=== PATIENT | male | born 1990 | race American Indian/Alaskan Native ===

== ENCOUNTER 2019-11-05 23:57 | Inpatient (IN) | payer OTHER, SELFPAY ==
[2019-11-06 00:41] LABS: Basophils % (Auto) 0.5 % (0.0-1.8); Eosinophils # (Auto) 0.1 K/mm3 (0.0-0.4); Eosinophils % (Auto) 1.2 % (0.0-4.3); Hematocrit 41.8 % (35.5-45.6); Hemoglobin 14.4 gm/dl (11.8-15.2); Lymphocytes # (Auto) 1.8 K/mm3 (1.2-5.4); Lymphocytes % (Auto) 30.7 % (13.4-35.0); Mean Corpuscular HGB Conc 34 % (32-34); Mean Corpuscular Volume 91 fl (84-94); Monocytes # (Auto) 0.5 K/mm3 (0.0-0.8); Monocytes % (Auto) 7.7 % (0.0-7.3); Platelet Count 300 K/mm3 (140-440)
[2019-11-06 01:05] LABS: Alanine Aminotransferase 424 units/L (7-56); Albumin 4.7 g/dL (3.9-5); BUN/Creatinine Ratio 13; Blood Urea Nitrogen 13 mg/dL (9-20); Calcium 9.8 mg/dL (8.4-10.2); Hemolysis Index 0
--- NOTE | 2019-11-06 02:46 | Ultrasound Report ---
ULTRASOUND ABDOMEN, LIMITED (RIGHT UPPER QUADRANT) INDICATION: pain, elevated LFTs COMPARISON: None available. LIMITATIONS: None FINDINGS: Pancreas: Not fully visualized but no obvious abnormalities of the head and body are noted Liver: Normal. Gallbladder: Partly contracted. Moderate sludge is seen. Small echogenic reflectors within the sludge possibly are tiny nonshadowing calculi. No wall thickening is seen however and no fluid is seen surr ounding or within the wall the gallbladder. The technologist reported a positive Hardwick's sign when e xamining the gallbladder. Bile ducts: Extrahepatic dilatation. Common Bile Duct measures 11 mm. Free fluid: None. Additional Findings: None. IMPRESSION: 1. Moderate gallbladder sludge with possible tiny calculi but without definite acute change noted. Ho wepennie, the technologist reported tenderness strictly over the gallbladder during the examination. 2. Moderate extrahepatic biliary dilatation of unclear source Signer Name: Fabian Marcus MD Signed: 11/06/2019 2:42 AM Workstation Name: [id number]
--- NOTE | 2019-11-06 05:20 | Emergency Department Report ---
ED Abdominal Pain HPI - General Chief Complaint: Abdominal Pain Stated Complaint: STOMACH PAIN Time Seen by Provider: 11/06/19 03:57 Source: patient Mode of arrival: Ambulatory Limitations: No Limitations - History of Present Illness Initial Comments: 29-year-old -[place] male patient without significant past medical history presents with complaints of acute right upper quadrant/epigastric pain x yesterday. Patient states he has had similar pain that has been intermittent for the past 2 years that typically last about 45 minutes and resolves without treatment. He states the pain is worse now and has been constant since around 2 PM yesterday. Patient reports the pain started after eating and denies any fever/chills/sweats, vomiting, diarrhea/melena/hematochezia, known history of gallstones, abdominal surgeries, chest pain, or shortness of breath. He admits to some nausea and states his pain worsens with sitting and lying down. Severity scale (0 -10): 4 - Related Data Allergies Allergy/AdvReac Type Severity Reaction Status Date / Time No Known Allergies Allergy Unverified 11/06/19 00:19 ED Review of Systems ROS: Stated complaint: STOMACH PAIN Other details as noted in HPI Constitutional: denies: chills, diaphoresis, fever, malaise, weakness Respiratory: denies: cough, shortness of breath Cardiovascular: denies: chest pain Endocrine: denies: excessive sweating Gastrointestinal: abdominal pain, nausea. denies: vomiting, diarrhea, constipation, hematemesis, melena, hematochezia Genitourinary: denies: urgency, dysuria, frequency, hematuria Musculoskeletal: denies: back pain Skin: denies: rash, lesions Neurological: denies: headache Hematological/Lymphatic: denies: easy bleeding, swollen glands ED Past Medical Hx - Past Medical History Previous Medical History?: No - Surgical History Past Surgical History?: No - Social History Smoking Status: Former Smoker Substance Use Type: Alcohol ED Physical Exam - General Limitations: No Limitations General appearance: alert, in no apparent distress - Head Head exam: Present: atraumatic, normocephalic - Eye Eye exam: Present: normal appearance. Absent: scleral icterus - Respiratory Respiratory exam: Present: normal lung sounds bilaterally. Absent: respiratory distress - Cardiovascular Cardiovascular Exam: Present: regular rate, normal rhythm. Absent: systolic murmur, diastolic murmur, rubs, gallop - GI/Abdominal GI/Abdominal exam: Present: soft, distended (Mild), tenderness (Right upper quadrant), normal bowel sounds - Expanded GI/Abdominal Exam Expanded GI/Abdominal exam: Present: Hardwick's sign. Absent: tenderness at [place] - Extremities Exam Extremities exam: Present: normal inspection - Back Exam Back exam: Present: normal inspection - Neurological Exam Neurological exam: Present: alert, oriented X3 - Psychiatric Psychiatric exam: Present: normal affect, normal mood - Skin Skin exam: Present: warm, dry, intact, normal color. Absent: rash, cyanosis, diaphoretic, ecchymosis ED Course Vital Signs 11/06/19 11/06/19 00:14 05:00 Temperature 99.1 F 98.8 F Pulse Rate 81 81 Respiratory 20 18 Rate Blood Pressure 132/89 Blood Pressure 141/95 [Left] O2 Sat by Pulse 99 98 Oximetry ED Medical Decision Making - Lab Data Result diagrams: 11/06/19 00:25 11/06/19 00:25 Lab Results 11/06/19 11/06/19 Range/Units 00:25 00:25 WBC 5.9 (4.5-11.0) K/mm3 RBC 4.60 (3.65-5.03) M/mm3 Hgb 14.4 (11.8-15.2) gm/dl Hct 41.8 (35.5-45.6) % MCV 91 (84-94) fl MCH 31 (28-32) pg MCHC 34 (32-34) % RDW 14.0 (13.2-15.2) % Plt Count 300 (140-440) K/mm3 Lymph % (Auto) 30.7 (13.4-35.0) % [place] % (Auto) 7.7 H (0.0-7.3) % Eos % (Auto) 1.2 (0.0-4.3) % Baso % (Auto) 0.5 (0.0-1.8) % Lymph # 1.8 (1.2-5.4) K/mm3 [place] # 0.5 (0.0-0.8) K/mm3 Eos # 0.1 (0.0-0.4) K/mm3 Baso # 0.0 (0.0-0.1) K/mm3 Seg Neutrophils % 59.9 (40.0-70.0) % Seg Neutrophils # 3.5 (1.8-7.7) K/mm3 Sodium 141 (137-145) mmol/L Potassium 4.2 (3.6-5.0) mmol/L Chloride 100.7 (98-107) mmol/L Carbon Dioxide 28 (22-30) mmol/L Anion Gap 17 mmol/L BUN 13 (9-20) mg/dL Creatinine 1.0 (0.8-1.3) mg/dL Estimated GFR > 60 ml/min BUN/Creatinine Ratio 13 % Glucose 104 H (75-100) mg/dL Calcium 9.8 (8.4-10.2) mg/dL Total Bilirubin 2.10 H (0.1-1.2) mg/dL AST 478 H (5-40) units/L ALT 424 H (7-56) units/L Alkaline Phosphatase 146 H (35-129) units/L Total Protein 7.8 (6.3-8.2) g/dL Albumin 4.7 (3.9-5) g/dL Albumin/Globulin Ratio 1.5 % Lipase 75 H (13-60) units/L - Radiology Data Radiology results: report reviewed ULTRASOUND ABDOMEN, LIMITED (RIGHT UPPER QUADRANT) INDICATION: pain, elevated LFTs COMPARISON: None available. LIMITATIONS: None FINDINGS: Pancreas: Not fully visualized but no obvious abnormalities of the head and body are noted Liver: Normal. Gallbladder: Partly contracted. Moderate sludge is seen. Small echogenic reflectors within the sludge possibly are tiny nonshadowing calculi. No wall thickening is seen however and no fluid is seen surrounding or within the wall the gallbladder. The technologist reported a positive Hardwick's sign when examining the gallbladder. Bile ducts: Extrahepatic dilatation. Common Bile Duct measures 11 mm. Free fluid: None. Additional Findings: None. IMPRESSION: 1. Moderate gallbladder sludge with possible tiny calculi but without definite acute change noted. However, the technologist reported tenderness strictly over the gallbladder during the examination. 2. Moderate extrahepatic biliary dilatation of unclear source - Medical Decision Making Patient here with acute right upper quadrant pain. Positive Hardwick sign on abdominal exam with mild distention of abdomen noted. White count is normal on CBC. Lipase is mildly elevated at 75. CMP shows ALT and AST in the 400s and alk phos at 146. Right upper quadrant ultrasound shows positive Hardwick sign, however is negative for cholecystitis; common bile duct is dilated at 11 mm with source unknown. Discussed patient with Dr. Hoffman, GI and Dr. Xiao, general surgery, who recommends MRCP and admission to hospital. Patient to be admitted by Dr. Frey, hospital medicine. Vitals are normal. Patient is nontoxic-appe aring. Morphine ordered for pain. Critical care attestation.: If time is entered above; I have spent that time in minutes in the direct care of this critically ill patient, excluding procedure time. ED Disposition Clinical Impression: Common bile duct dilatation, Elevated liver enzymes, Acute abdominal pain in right upper quadrant Disposition: DC-09 OP ADMIT IP TO THIS HOSP Is pt being admited?: Yes Condition: Stable
[2019-11-06] MEDS ORDERED: MORPHINE 4 MG/1 ML INJ IV ONE (05:23)
[2019-11-06] MEDS ORDERED: ONDANSETRON 4 MG/2 ML INJ IV ONE (05:23)
[2019-11-06 06:05] LABS: Bacteria,Urine 1+ /HPF (Negative); Bilirubin,Urine SM (Negative); Blood,Urine NEG (Negative); Color,Urine Amber (Yellow); Mucus,Urine 2+ /HPF; WBC,Urine < 1.0 /HPF (0.0-6.0)
[2019-11-06 06:27] LABS: Ictotest,Urine Positive (Negative)
[2019-11-06] MEDS ORDERED: HYDROmorphone 1 MG/1 ML INJ IV PRN (07:02)
[2019-11-06] MEDS ORDERED: ONDANSETRON 4 MG/2 ML INJ IV PRN (07:03)
[2019-11-06] MEDS ORDERED: ACETAMINOPHEN 325 MG TAB PO PRN (07:04)
--- NOTE | 2019-11-06 07:12 | History and Physical Report ---
History of Present Illness Date of examination: 11/06/19 Date of admission: 11/06/19 Chief complaint: Right upper quadrant Abdominal pain History of present illness: 29 year old male presenting with right upper quadrant abdominal pain going on for about 2 years but worse in the last 2 days . there is no history of fever or chills, no history of shortness of breath, but there was history of nausea or vomiting. Past History Past Surgical History: No surgical history Social history: alcohol abuse Family history: no significant family history Medications and Allergies Allergies Allergy/AdvReac Type Severity Reaction Status Date / Time No Known Allergies Allergy Unverified 11/06/19 00:19 Active Meds: Active Medications Acetaminophen (Tylenol) 650 mg PO Q4H PRN PRN Reason: Pain, Mild (1-3) Hydromorphone HCl (Dilaudid) 0.5 mg IV Q3H PRN PRN Reason: Pain , Severe (7-10) Dextrose/Sodium Chloride (D5/0.45ns) 1,000 mls @ 125 mls/hr IV DIRECT YEIMY Ondansetron HCl (Zofran) 4 mg IV Q8H PRN PRN Reason: Nausea And Vomiting Review of Systems Constitutional: no weight loss, no weight gain, no fever, no chills, no sweats, no night sweats, no anorexia, no fatigue, no weakness, no malaise, no chronic pain Eyes: bilateral: other (No Bilateral eye symptom) Ears, nose, mouth and throat: no ear pain, no ear discharge, no decreased hearing, no nose pain, no nasal congestion, no nasal discharge, no dental pain, no dysphagia, no swelling in mouth Cardiovascular: no chest pain, no palpitations, no syncope, no lightheadedness, no shortness of breath, no high blood pressure Respiratory: no cough, no cough with sputum, no shortness of breath, no con gestion, no pain on inspiration Gastrointestinal: abdominal pain, nausea, vomiting, no diarrhea, no constipation, no change in bowel habits, no hematemesis, no coffee ground e mesis, no melena, no hematochezia, no loss of appetite, no early satiety Genitourinary Male: no dysuria, no hematuria, no flank pain, no discharge, no urinary frequency, no testicular pain Rectal: no pain, no itching Musculoskeletal: no neck stiffness, no neck pain, no shooting arm pain, no arm numbness/tingling, no low back pain, no shooting leg pain, no leg numbness/tingling, no muscle weakness, no muscle cramps, no myalgias Integumentary: no rash, no pruritis, no redness, no sores, no wounds, no jaundice, no boils, no darkening of skin Neurological: no weakness, no parathesias, no numbness, no seizures, no syncope, no ataxia, no vertigo, no headaches, no convulsions, no aphasia, no change in speech, no confusion Psychiatric: no anxiety, no insomnia, no change in appetite, no change in libido Endocrine: no cold intolerance, no heat intolerance, no polydipsia, no polyuria, no nocturia, no excessive sweating, no flushing, no weight change Hematologic/Lymphatic: no easy bruising, no easy bleeding Allergic/Immunologic: no persistent infections Exam - Constitutional Vitals: Temp Pulse Resp BP Pulse Ox 98.8 F 81 18 141/95 99 11/06/19 05:00 11/06/19 05:00 11/06/19 06:57 11/06/19 05:00 11/06/19 06:57 General appearance: Present: mild distress - EENT Eyes: Present: PERRL, EOM intact ENT: hearing intact, clear oral mucosa, dentition normal - Neck Neck: Present: supple, normal ROM - Respiratory Respiratory effort: normal - Cardiovascular Rhythm: regular Heart Sounds: Present: S1 & S2. Absent: gallop, systolic murmur, diastolic murmur - Extremities Extremities: no ischemia, No edema Peripheral Pulses: within normal limits - Abdominal General gastrointestinal: Present: soft, non-tender, non-distended. Absent: tender, distended, rigid, hepatomegaly, splenomegaly, mass Male genitourinary: Present: deferred - Rectal Rectal Exam: deferred - Integumentary Integumentary: Present: clear, warm, dry. Absent: jaundice - Musculoskeletal Musculoskeletal: strength equal bilaterally - Psychiatric Psychiatric: appropriate mood/affect HEART Score - HEART Score Age: < 45 Risk factors: No known risk factors - Critical Actions Critical Actions: 0-3 pts:0.9-1.7%risk of adverse cardiac event.Candidate for discharge Results - Labs CBC & Chem 7: 11/06/19 00:25 11/06/19 00:25 Labs: Laboratory Last Values WBC 5.9 K/mm3 (4.5-11.0) 11/06/19 00:25 RBC 4.60 M/mm3 (3.65-5.03) 11/06/19 00:25 Hgb 14.4 gm/dl (11.8-15.2) 11/06/19 00:25 Hct 41.8 % (35.5-45.6) 11/06/19 00:25 MCV 91 fl (84-94) 11/06/19 00:25 MCH 31 pg (28-32) 11/06/19 00:25 MCHC 34 % (32-34) 11/06/19 00:25 RDW 14.0 % (13.2-15.2) 11/06/19 00:25 Plt Count 300 K/mm3 (140-440) 11/06/19 00:25 Lymph % (Auto) 30.7 % (13.4-35.0) 11/06/19 00:25 [place] % (Auto) 7.7 % (0.0-7.3) H 11/06/19 00:25 Eos % (Auto) 1.2 % (0.0-4.3) 11/06/19 00:25 Baso % (Auto) 0.5 % (0.0-1.8) 11/06/19 00:25 Lymph # 1.8 K/mm3 (1.2-5.4) 11/06/19 00:25 [place] # 0.5 K/mm3 (0.0-0.8) 11/06/19 00:25 Eos # 0.1 K/mm3 (0.0-0.4) 11/06/19 00:25 Baso # 0.0 K/mm3 (0.0-0.1) 11/06/19 00:25 Seg Neutrophils % 59.9 % (40.0-70.0) 11/06/19 00:25 Seg Neutrophils # 3.5 K/mm3 (1.8-7.7) 11/06/19 00:25 Sodium 141 mmol/L (137-145) 11/06/19 00:25 Potassium 4.2 mmol/L (3.6-5.0) 11/06/19 00:25 Chloride 100.7 mmol/L (98-107) 11/06/19 00:25 Carbon Dioxide 28 mmol/L (22-30) 11/06/19 00:25 Anion Gap 17 mmol/L 11/06/19 00:25 BUN 13 mg/dL (9-20) 11/06/19 00:25 Creatinine 1.0 mg/dL (0.8-1.3) 11/06/19 00:25 Estimated GFR > 60 ml/min 11/06/19 00:25 BUN/Creatinine Ratio 13 % 11/06/19 00:25 Glucose 104 mg/dL (75-100) H 11/06/19 00:25 Calcium 9.8 mg/dL (8.4-10.2) 11/06/19 00:25 Total Bilirubin 2.10 mg/dL (0.1-1.2) H 11/06/19 00:25 AST 478 units/L (5-40) H 11/06/19 00:25 ALT 424 units/L (7-56) H 11/06/19 00:25 Alkaline Phosphatase 146 units/L (35-129) H 11/06/19 00:25 Total Protein 7.8 g/dL (6.3-8.2) 11/06/19 00:25 Albumin 4.7 g/dL (3.9-5) 11/06/19 00:25 Albumin/Globulin Ratio 1.5 % 11/06/19 00:25 Lipase 75 units/L (13-60) H 11/06/19 00:25 Urine Color [place] (Yellow) 11/06/19 05:17 Urine Turbidity Clear (Clear) 11/06/19 05:17 Urine pH 6.0 (5.0-7.0) 11/06/19 05:17 Ur Specific [place] 1.033 (1.003-1.030) H 11/06/19 05:17 Urine Protein 30 mg/dl mg/dL (Negative) 11/06/19 05:17 Urine Glucose (UA) Neg mg/dL (Negative) 11/06/19 05:17 Urine Ketones Neg mg/dL (Negative) 11/06/19 05:17 Urine Blood Neg (Negative) 11/06/19 05:17 Urine Nitrite Neg (Negative) 11/06/19 05:17 Urine Bilirubin Sm (Negative) 11/06/19 05:17 Urine Ictotest Positive (Negative) 11/06/19 05:17 Urine Urobilinogen 4.0 mg/dL (<2.0) 11/06/19 05:17 Ur Leukocyte Esterase Neg (Negative) 11/06/19 05:17 Urine WBC (Auto) < 1.0 /HPF (0.0-6.0) 11/06/19 05:17 Urine RBC (Auto) 10.0 /HPF (0.0-6.0) 11/06/19 05:17 U Epithel Cells (Auto) < 1.0 /HPF (0-13.0) 11/06/19 05:17 Urine Bacteria (Auto) 1+ /HPF (Negative) 11/06/19 05:17 Urine Mucus 2+ /HPF 11/06/19 05:17 [place]/IV: IV Catheter Type [Left Distal INT / Saline [place] Antecubital] Assessment and Plan - Patient Problems (1) Acute abdominal pain in right upper quadrant Current Visit: Yes Status: Acute Plan to address problem: 1. I.V Diludid PRN pain 2. I.V Zofran for nausea and vomiting (2) Common bile duct dilatation Current Visit: Yes Status: Acute Plan to address problem: 1. Surgical consult 2. Gastrointestinal consult 3. MRCP 4. NPO until reviwed by the G.I doctor or the Surgeon. (3) Elevated liver enzymes Current Visit: Yes Status: Acute Plan to address problem: .G.I Consult evaluation
[2019-11-06] MEDS ORDERED: LORazepam 2 MG/ML VIAL IV PRN (09:59)
--- NOTE | 2019-11-06 11:59 | Consultation ---
History of Present Illness Consult date: 11/06/19 Reason for consult: gallstones Chief complaint: Abdominal pain - History of present illness History of present illness: 29-year-old male with no past medical history presented to the emergency room with 2 days of worsening right upper quadrant abdominal pain radiating to his back. The pain is dull and started after he ate fast food. He states that since then he has had no appetite. He had one episode of emesis which consisted of digested food. No fevers or chills. He states that he has had this pain in the past with multiple episodes over the last 5 years. He was not aware that he had a gallbladder issue. The pain is now resolved. He is hungry and thirsty. Past History Past Medical History: No medical history Past Surgical History: No surgical history Social history: alcohol abuse Family history: no significant family history Medications and Allergies Allergies Allergy/AdvReac Type Severity Reaction Status Date / Time No Known Allergies Allergy Unverified 11/06/19 00:19 Active Meds: Active Medications Acetaminophen (Tylenol) 650 mg PO Q4H PRN PRN Reason: Pain, Mild (1-3) Hydromorphone HCl (Dilaudid) 0.5 mg IV Q3H PRN PRN Reason: Pain , Severe (7-10) Dextrose/Sodium Chloride (D5/0.45ns) 1,000 mls @ 125 mls/hr IV DIRECT YEIMY Lorazepam (Ativan) 2 mg IV Q4H PRN PRN Reason: Agitation Ondansetron HCl (Zofran) 4 mg IV Q8H PRN PRN Reason: Nausea And Vomiting Review of Systems All systems: negative (10 point review of systems performed and negative except for that listed in HPI) Exam Vital Signs Temp Pulse Resp BP Pulse Ox 99.1 F 81 20 132/89 99 11/06/19 00:14 11/06/19 00:14 11/06/19 00:14 11/06/19 00:14 11/06/19 00:14 Narrative exam: Gen.: Awake, alert, oriented 3. No apparent distress ENT: Trachea midline. No lymphadenopathy. No scleral icterus or conjunctival pallor CV: S1, S2 present Respiratory: No audible wheezes Abdomen: Soft, nondistended, nontender. No rebound, rigidity, guarding Extremities: No clubbing, cyanosis, edema Results - Labs 11/06/19 00:25 11/06/19 00:25 Abnormal lab results 11/06/19 11/06/19 11/06/19 Range/Units 00:25 00:25 05:17 [place] % (Auto) 7.7 H (0.0-7.3) % Glucose 104 H (75-100) mg/dL Total Bilirubin 2.10 H (0.1-1.2) mg/dL AST 478 H (5-40) units/L ALT 424 H (7-56) units/L Alkaline Phosphatase 146 H (35-129) units/L Lipase 75 H (13-60) units/L Ur Specific [place] 1.033 H (1.003-1.030) Diabetes panel 11/06/19 Range/Units 00:25 Sodium 141 (137-145) mmol/L Potassium 4.2 (3.6-5.0) mmol/L Chloride 100.7 (98-107) mmol/L Carbon Dioxide 28 (22-30) mmol/L BUN 13 (9-20) mg/dL Creatinine 1.0 (0.8-1.3) mg/dL Glucose 104 H (75-100) mg/dL Calcium 9.8 (8.4-10.2) mg/dL AST 478 H (5-40) units/L ALT 424 H (7-56) units/L Alkaline Phosphatase 146 H (35-129) units/L Total Protein 7.8 (6.3-8.2) g/dL Albumin 4.7 (3.9-5) g/dL Calcium panel 11/06/19 Range/Units 00:25 Calcium 9.8 (8.4-10.2) mg/dL Albumin 4.7 (3.9-5) g/dL Pituitary panel 11/06/19 Range/Units 00:25 Sodium 141 (137-145) mmol/L Potassium 4.2 (3.6-5.0) mmol/L Chloride 100.7 (98-107) mmol/L Carbon Dioxide 28 (22-30) mmol/L BUN 13 (9-20) mg/dL Creatinine 1.0 (0.8-1.3) mg/dL Glucose 104 H (75-100) mg/dL Calcium 9.8 (8.4-10.2) mg/dL Adrenal panel 11/06/19 Range/Units 00:25 Sodium 141 (137-145) mmol/L Potassium 4.2 (3.6-5.0) mmol/L Chloride 100.7 (98-107) mmol/L Carbon Dioxide 28 (22-30) mmol/L BUN 13 (9-20) mg/dL Creatinine 1.0 (0.8-1.3) mg/dL Glucose 104 H (75-100) mg/dL Calcium 9.8 (8.4-10.2) mg/dL Total Bilirubin 2.10 H (0.1-1.2) mg/dL AST 478 H (5-40) units/L ALT 424 H (7-56) units/L Alkaline Phosphatase 146 H (35-129) units/L Total Protein 7.8 (6.3-8.2) g/dL Albumin 4.7 (3.9-5) g/dL - Imaging US - abdomen: report reviewed, image reviewed Assessment and Plan 29 yo M with 1. dilated CBD r/o choledoco 2. cholelithiasis 3. transaminitis/hyperbilirubinemia Plan: 1. NPO, if MRCP cannot be done over weekend patient may be started on clear liquid diet 2. IVF 3. IV abx 4. MRCP pending 5. prn pain control 6. GI consulted 7. trend bilis 8. I had an extensive discussion with the patient regarding my recommendations for cholecystectomy prior to discharge. I explained all risk, benefits, alternatives to surgery and questions were answered. The patient appears anxious about the diagnosis and was reluctant to sign the consent at this time. I have left the consent with him to review and decide if he feels comfortable with proceeding. Thank you. Please call with questions.
--- NOTE | 2019-11-06 13:04 | Event Note ---
Date: 11/06/19 Patient was admitted this morning with nausea vomiting and abdominal pain, ultrasound showed cholelithiasis and moderate extrahepatic biliary dilation, evaluated by surgery and GI, Advised MRCP, Will follow the patient clinically , follow MRCP , follow GI and surgery recommendations Monitor closely and adjust management as needed Plan of care discussed with the patient in the ER waiting for room assignment
--- NOTE | 2019-11-06 15:01 | Consultation ---
History of Present Illness - Reason for Consult Consult date: 11/06/19 Abnormal LFTs Requesting physician: BINDU WEINER - History of Present Illness 29 yo BM admitted with epigastric throbbing cramping pain starting on 11/03 at ~ 2PM. Symptoms persisted, with N/V x 1, and pt came to ER. He was given meds with relief. Pt has had similar symptoms x 5 yrs, intermittent, and ~ q 3 months, usu lasting 45', with burping, but no N/V. No clear precipitants. No GI bleed, F/C/NS. No hx of liver disease. Occ EtOH. No weight loss. No hx of jaundice. Meds reviewed. Past History Past Medical History: No medical history Past Surgical History: No surgical history Social history: alcohol abuse (Denies significant abuse.). denies: smoking Family history: no significant family history Medications and Allergies Allergies Allergy/AdvReac Type Severity Reaction Status Date / Time No Known Allergies Allergy Unverified 11/06/19 00:19 Active Meds: Active Medications Acetaminophen (Tylenol) 650 mg PO Q4H PRN PRN Reason: Pain, Mild (1-3) Hydromorphone HCl (Dilaudid) 0.5 mg IV Q3H PRN PRN Reason: Pain , Severe (7-10) Dextrose/Sodium Chloride (D5/0.45ns) 1,000 mls @ 125 mls/hr IV DIRECT YEIMY Lorazepam (Ativan) 2 mg IV Q4H PRN PRN Reason: Agitation Ondansetron HCl (Zofran) 4 mg IV Q8H PRN PRN Reason: Nausea And Vomiting Review of Systems All systems: negative (as noted in HPI) Exam - Constitutional Vitals: Temp Pulse Resp BP Pulse Ox 98.8 F 88 18 142/88 98 11/06/19 05:00 11/06/19 13:04 11/06/19 13:04 11/06/19 13:04 11/06/19 13:04 General appearance: Present: no acute distress - EENT Eyes: Present: PERRL, EOM intact ENT: hearing intact - Respiratory Respiratory effort: normal Respiratory: bilateral: CTA - Cardiovascular Rhythm: regular Heart Sounds: Present: S1 & S2 - Extremities Extremities: No edema - Abdominal General gastrointestinal: Present: soft, non-tender, normal bowel sounds Results - Labs CBC & Chem 7: 11/06/19 00:25 11/06/19 00:25 Labs: Abnormal lab results 11/06/19 11/06/19 11/06/19 Range/Units 00:25 00:25 05:17 [place] % (Auto) 7.7 H (0.0-7.3) % Glucose 104 H (75-100) mg/dL Total Bilirubin 2.10 H (0.1-1.2) mg/dL AST 478 H (5-40) units/L ALT 424 H (7-56) units/L Alkaline Phosphatase 146 H (35-129) units/L Lipase 75 H (13-60) units/L Ur Specific [place] 1.033 H (1.003-1.030) - Imaging and Cardiology US - abdomen: report reviewed (CBD dil to 11mm, sludge in GB.) Assessment and Plan 1. Abnormal LFTs - with epigastric pain and dilated CBD. Suspicious for choledocholithiasis, possibly spontaneously resolved. Doubt hepatitis or other process. - agree with MRCP - will check hepatitis serologies - if LFTs decline rapidly, could consider CCY and IOC
[2019-11-06] MEDS: D5W/0.45% NACL 1,000 ML IV SCH (19:06)
[2019-11-07 01:58] LABS: Alanine Aminotransferase 687 units/L (7-56); Albumin 4.1 g/dL (3.9-5); BUN/Creatinine Ratio 14; Blood Urea Nitrogen 13 mg/dL (9-20); Hemolysis Index 12
[2019-11-07] MEDS: D5W/0.45% NACL 1,000 ML IV SCH ×3 (04:31→21:30)
--- NOTE | 2019-11-07 08:16 | Progress Note ---
Assessment and Plan Assessment and plan: --Dilated common bile duct; MRCP to rule out choledocholithiasis Rescheduled the test for tomorrow as not done on Sundays in the hospital N.p.o. status, pain medications, IV fluids --Cholelithiasis; follow MRCP tomorrow Possible cholecystectomy prior to discharge Pain medications IV fluids --Worsening transaminitis; supportive care, GI following hepatitis panel retrieved --Obesity; BMI 35.9 Patient needs weight reduction when medically stable --Abnormal urine analysis; Possible UTI, however patient does not have fever, leukocytosis Or urinary symptoms, will check urine cultures Empiric antibiotics if needed --DVT prophylaxis; SCDs/Lovenox Monitor closely and adjust management as needed Needle Loom Setter recommendations noted and appreciated History Interval history: 29-year-old obese male patient was admitted with abdominal pain work-up is consistent with dilated common bile duct, cholelithiasis and transaminitis. Patient was evaluated by GI and surgery, awaiting MRCP to rule out choledocholithiasis, surgery recommended cholecystectomy prior to discharge Patient feels slightly better MRCP is not done during Sundays Rescheduled for tomorrow Patient has no new complaints Vital signs reviewed Hospitalist Physical - Constitutional Vitals: Temp Pulse Resp BP Pulse Ox 98.4 F 76 16 117/77 96 11/07/19 04:51 11/07/19 04:51 11/07/19 04:51 11/07/19 04:51 11/07/19 04:51 General appearance: Present: no acute distress, well-nourished - EENT Eyes: Present: PERRL, EOM intact - Neck Neck: Present: supple, normal ROM - Respiratory Respiratory effort: normal Respiratory: bilateral: diminished, negative: rales, rhonchi, wheezing - Cardiovascular Rhythm: regular Heart Sounds: Present: S1 & S2 - Extremities Extremities: no ischemia, No edema - Abdominal General gastrointestinal: soft, non-tender, non-distended, normal bowel sounds - Integumentary Integumentary: Present: clear, warm - Psychiatric Psychiatric: appropriate mood/affect, cooperative - Neurologic Neurologic: CNII-XII intact, moves all extremities HEART Score - HEART Score Age: < 45 Risk factors: No known risk factors - Critical Actions Critical Actions: 0-3 pts:0.9-1.7%risk of adverse cardiac event.Candidate for discharge Results - Labs CBC & Chem 7: 11/06/19 00:25 11/07/19 01:05 Labs: Laboratory Last Values WBC 5.9 K/mm3 (4.5-11.0) 11/06/19 00:25 RBC 4.60 M/mm3 (3.65-5.03) 11/06/19 00:25 Hgb 14.4 gm/dl (11.8-15.2) 11/06/19 00:25 Hct 41.8 % (35.5-45.6) 11/06/19 00:25 MCV 91 fl (84-94) 11/06/19 00:25 MCH 31 pg (28-32) 11/06/19 00:25 MCHC 34 % (32-34) 11/06/19 00:25 RDW 14.0 % (13.2-15.2) 11/06/19 00:25 Plt Count 300 K/mm3 (140-440) 11/06/19 00:25 Lymph % (Auto) 30.7 % (13.4-35.0) 11/06/19 00:25 [place] % (Auto) 7.7 % (0.0-7.3) H 11/06/19 00:25 Eos % (Auto) 1.2 % (0.0-4.3) 11/06/19 00:25 Baso % (Auto) 0.5 % (0.0-1.8) 11/06/19 00:25 Lymph # 1.8 K/mm3 (1.2-5.4) 11/06/19 00:25 [place] # 0.5 K/mm3 (0.0-0.8) 11/06/19 00:25 Eos # 0.1 K/mm3 (0.0-0.4) 11/06/19 00:25 Baso # 0.0 K/mm3 (0.0-0.1) 11/06/19 00:25 Seg Neutrophils % 59.9 % (40.0-70.0) 11/06/19 00:25 Seg Neutrophils # 3.5 K/mm3 (1.8-7.7) 11/06/19 00:25 Sodium 139 mmol/L (137-145) 11/07/19 01:05 Potassium 3.7 mmol/L (3.6-5.0) 11/07/19 01:05 Chloride 98.9 mmol/L (98-107) 11/07/19 01:05 Carbon Dioxide 29 mmol/L (22-30) 11/07/19 01:05 Anion Gap 15 mmol/L 11/07/19 01:05 BUN 13 mg/dL (9-20) 11/07/19 01:05 Creatinine 0.9 mg/dL (0.8-1.3) 11/07/19 01:05 Estimated GFR > 60 ml/min 11/07/19 01:05 BUN/Creatinine Ratio 14 % 11/07/19 01:05 Glucose 113 mg/dL (75-100) H 11/07/19 01:05 Calcium 9.0 mg/dL (8.4-10.2) 11/07/19 01:05 Total Bilirubin 2.60 mg/dL (0.1-1.2) H 11/07/19 01:05 AST 503 units/L (5-40) H 11/07/19 01:05 ALT 687 units/L (7-56) H 11/07/19 01:05 Alkaline Phosphatase 153 units/L (35-129) H 11/07/19 01:05 Total Protein 7.6 g/dL (6.3-8.2) 11/07/19 01:05 Albumin 4.1 g/dL (3.9-5) 11/07/19 01:05 Albumin/Globulin Ratio 1.2 % 11/07/19 01:05 Lipase 75 units/L (13-60) H 11/06/19 00:25 Urine Color [place] (Yellow) 11/06/19 05:17 Urine Turbidity Clear (Clear) 11/06/19 05:17 Urine pH 6.0 (5.0-7.0) 11/06/19 05:17 Ur Specific [place] 1.033 (1.003-1.030) H 11/06/19 05:17 Urine Protein 30 mg/dl mg/dL (Negative) 11/06/19 05:17 Urine Glucose (UA) Neg mg/dL (Negative) 11/06/19 05:17 Urine Ketones Neg mg/dL (Negative) 11/06/19 05:17 Urine Blood Neg (Negative) 11/06/19 05:17 Urine Nitrite Neg (Negative) 11/06/19 05:17 Urine Bilirubin Sm (Negative) 11/06/19 05:17 Urine Ictotest Positive (Negative) 11/06/19 05:17 Urine Urobilinogen 4.0 mg/dL (<2.0) 11/06/19 05:17 Ur Leukocyte Esterase Neg (Negative) 11/06/19 05:17 Urine WBC (Auto) < 1.0 /HPF (0.0-6.0) 11/06/19 05:17 Urine RBC (Auto) 10.0 /HPF (0.0-6.0) 11/06/19 05:17 U Epithel Cells (Auto) < 1.0 /HPF (0-13.0) 11/06/19 05:17 Urine Bacteria (Auto) 1+ /HPF (Negative) 11/06/19 05:17 Urine Mucus 2+ /HPF 11/06/19 05:17 Burnett/IV: Voiding Method Toilet IV Catheter Type [Right Peripheral IV Forearm] IV Catheter Type [Left Distal INT / Saline Lock Port Antecubital] Active Medications - Current Medications Current Medications: Generic Name Dose Route Start Last Admin Trade Name Freq PRN Reason Stop Dose Admin Acetaminophen 650 mg 11/06/19 07:04 Tylenol PO Q4H PRN Pain, Mild (1-3) Hydromorphone HCl 0.5 mg 11/06/19 07:02 Dilaudid IV Q3H PRN Pain , Severe (7-10) Dextrose/Sodium Chloride 1,000 mls @ 125 mls/hr 11/06/19 08:00 11/07/19 04:31 D5/0.45ns IV 125 mls/hr DIRECT YEIMY Administration Lorazepam 2 mg 11/06/19 09:59 Ativan IV Q4H PRN Agitation Ondansetron HCl 4 mg 11/06/19 07:03 Zofran IV Q8H PRN Nausea And Vomiting
[2019-11-07] MEDS ORDERED: MORPHINE 2 MG/1 ML INJ IV PRN (08:22)
[2019-11-07] MEDS: PANTOPRAZOLE 40 MG INJ IV SCH (10:01)
--- NOTE | 2019-11-07 11:30 | Progress Note ---
Assessment and Plan 29 yo M with 1. dilated CBD r/o choledoco 2. cholelithiasis 3. transaminitis/hyperbilirubinemia Plan: 1. Reg diet, NPO p MN for MRCP 2. IVF 3. IV abx 4. MRCP pending - will not be done today - confirmed with nursing specialty food products supervisor as MRI not available on Friday. 5. prn pain control 6. GI consult noted 7. trend bilis and LFTs- trending up 8. Patient agreeable to cholecystectomy this admission. Consent obtained. Timing of surgery dependent on MRCP results and if ERCP is needed. Thank you. Please call with questions. Subjective Date of service: 11/07/19 Narrative: Pt seen and examined. No pain, n/v. Afebrile. c/o being hungry. Objective Vital Signs - 12hr 11/07/19 04:51 Temperature 98.4 F Pulse Rate 76 Respiratory 16 Rate Blood Pressure 117/77 O2 Sat by Pulse 96 Oximetry - General physical appearance Narrative Exam: Gen; AAOx3. NAD CV: s1, s2+ Resp: even and unlabored Abd: soft, NT, ND Ext: no c/c/e - Labs 11/06/19 00:25 11/07/19 01:05 Diabetes panel 11/07/19 Range/Units 01:05 Sodium 139 (137-145) mmol/L Potassium 3.7 (3.6-5.0) mmol/L Chloride 98.9 (98-107) mmol/L Carbon Dioxide 29 (22-30) mmol/L BUN 13 (9-20) mg/dL Creatinine 0.9 (0.8-1.3) mg/dL Glucose 113 H (75-100) mg/dL Calcium 9.0 (8.4-10.2) mg/dL AST 503 H (5-40) units/L ALT 687 H (7-56) units/L Alkaline Phosphatase 153 H (35-129) units/L Total Protein 7.6 (6.3-8.2) g/dL Albumin 4.1 (3.9-5) g/dL Calcium panel 11/07/19 Range/Units 01:05 Calcium 9.0 (8.4-10.2) mg/dL Albumin 4.1 (3.9-5) g/dL Pituitary panel 11/07/19 Range/Units 01:05 Sodium 139 (137-145) mmol/L Potassium 3.7 (3.6-5.0) mmol/L Chloride 98.9 (98-107) mmol/L Carbon Dioxide 29 (22-30) mmol/L BUN 13 (9-20) mg/dL Creatinine 0.9 (0.8-1.3) mg/dL Glucose 113 H (75-100) mg/dL Calcium 9.0 (8.4-10.2) mg/dL Adrenal panel 11/07/19 Range/Units 01:05 Sodium 139 (137-145) mmol/L Potassium 3.7 (3.6-5.0) mmol/L Chloride 98.9 (98-107) mmol/L Carbon Dioxide 29 (22-30) mmol/L BUN 13 (9-20) mg/dL Creatinine 0.9 (0.8-1.3) mg/dL Glucose 113 H (75-100) mg/dL Calcium 9.0 (8.4-10.2) mg/dL Total Bilirubin 2.60 H (0.1-1.2) mg/dL AST 503 H (5-40) units/L ALT 687 H (7-56) units/L Alkaline Phosphatase 153 H (35-129) units/L Total Protein 7.6 (6.3-8.2) g/dL Albumin 4.1 (3.9-5) g/dL
[2019-11-07 12:21] LABS: Hepatitis B Surface Antigen Non-Reactive (Negative); Hepatitis C Virus Antibody Non-Reactive (NonReactive)
--- NOTE | 2019-11-07 14:56 | Event Note ---
Date: 11/07/19 Increase in LFTs noted. Hepatitis serologies negative. Pt reportedly asymptomatic. Await MRCP. Monitor LFTs.
[2019-11-08] MEDS: D5W/0.45% NACL 1,000 ML IV SCH ×3 (05:45→21:31)
[2019-11-08 07:45] LABS: Alanine Aminotransferase 519 units/L (7-56); Albumin 3.6 g/dL (3.9-5); BUN/Creatinine Ratio 9; Blood Urea Nitrogen 7 mg/dL (9-20); Calcium 8.3 mg/dL (8.4-10.2); Hemolysis Index 4
--- NOTE | 2019-11-08 08:00 | Progress Note ---
Assessment and Plan Assessment and plan: --Dilated common bile duct; MRCP today to rule out choledocholithiasis N.p.o. status, pain medications, IV fluids --Cholelithiasis; follow MRCP Possible cholecystectomy prior to discharge Pain medications IV fluids --Transaminitis; trending down supportive care, GI following hepatitis panel negative, follow MRCP today --Hyperbilirubinemia; resolved --Obesity; BMI 35.9 Patient needs weight reduction when medically stable --Abnormal urine analysis; Possible UTI, however patient does not have fever, leukocytosis Or urinary symptoms, will check urine cultures Empiric antibiotics if needed --DVT prophylaxis; SCDs/Lovenox Plan of care reviewed with the patient and his nurse History Interval history: I have seen and examined the patient this morning Patient is n.p.o. status scheduled for MRCP Feels slightly better no new complaints Vital signs noted Hospitalist Physical - Constitutional Vitals: Temp Pulse Resp BP Pulse Ox 98.5 F 76 16 108/70 98 11/08/19 04:35 11/07/19 21:21 11/08/19 04:35 11/08/19 04:35 11/07/19 21:21 General appearance: Present: no acute distress, well-nourished - EENT Eyes: Present: PERRL, EOM intact - Neck Neck: Present: supple, normal ROM - Respiratory Respiratory effort: normal Respiratory: bilateral: diminished, negative: rales, rhonchi, wheezing - Cardiovascular Rhythm: regular Heart Sounds: Present: S1 & S2 - Extremities Extremities: no ischemia, No edema - Abdominal General gastrointestinal: soft, non-tender, non-distended, normal bowel sounds - Integumentary Integumentary: Present: clear, warm - Psychiatric Psychiatric: appropriate mood/affect, cooperative - Neurologic Neurologic: CNII-XII intact, moves all extremities HEART Score - HEART Score Age: < 45 Risk factors: No known risk factors - Critical Actions Critical Actions: 0-3 pts:0.9-1.7%risk of adverse cardiac event.Candidate for discharge Results - Labs CBC & Chem 7: 11/06/19 00:25 11/08/19 06:29 Labs: Laboratory Last Values WBC 5.9 K/mm3 (4.5-11.0) 11/06/19 00:25 RBC 4.60 M/mm3 (3.65-5.03) 11/06/19 00:25 Hgb 14.4 gm/dl (11.8-15.2) 11/06/19 00:25 Hct 41.8 % (35.5-45.6) 11/06/19 00:25 MCV 91 fl (84-94) 11/06/19 00:25 MCH 31 pg (28-32) 11/06/19 00:25 MCHC 34 % (32-34) 11/06/19 00:25 RDW 14.0 % (13.2-15.2) 11/06/19 00:25 Plt Count 300 K/mm3 (140-440) 11/06/19 00:25 Lymph % (Auto) 30.7 % (13.4-35.0) 11/06/19 00:25 [place] % (Auto) 7.7 % (0.0-7.3) H 11/06/19 00:25 Eos % (Auto) 1.2 % (0.0-4.3) 11/06/19 00:25 Baso % (Auto) 0.5 % (0.0-1.8) 11/06/19 00:25 Lymph # 1.8 K/mm3 (1.2-5.4) 11/06/19 00:25 [place] # 0.5 K/mm3 (0.0-0.8) 11/06/19 00:25 Eos # 0.1 K/mm3 (0.0-0.4) 11/06/19 00:25 Baso # 0.0 K/mm3 (0.0-0.1) 11/06/19 00:25 Seg Neutrophils % 59.9 % (40.0-70.0) 11/06/19 00:25 Seg Neutrophils # 3.5 K/mm3 (1.8-7.7) 11/06/19 00:25 Sodium 139 mmol/L (137-145) 11/08/19 06:29 Potassium 3.8 mmol/L (3.6-5.0) 11/08/19 06:29 Chloride 102.6 mmol/L (98-107) 11/08/19 06:29 Carbon Dioxide 25 mmol/L (22-30) 11/08/19 06:29 Anion Gap 15 mmol/L 11/08/19 06:29 BUN 7 mg/dL (9-20) L 11/08/19 06:29 Creatinine 0.8 mg/dL (0.8-1.3) 11/08/19 06:29 Estimated GFR > 60 ml/min 11/08/19 06:29 BUN/Creatinine Ratio 9 % 11/08/19 06:29 Glucose 110 mg/dL (75-100) H 11/08/19 06:29 Calcium 8.3 mg/dL (8.4-10.2) L 11/08/19 06:29 Magnesium 2.20 mg/dL (1.7-2.3) 11/08/19 06:29 Total Bilirubin 0.70 mg/dL (0.1-1.2) 11/08/19 06:29 AST 201 units/L (5-40) H 11/08/19 06:29 ALT 519 units/L (7-56) H 11/08/19 06:29 Alkaline Phosphatase 138 units/L (35-129) H 11/08/19 06:29 Total Protein 6.8 g/dL (6.3-8.2) 11/08/19 06:29 Albumin 3.6 g/dL (3.9-5) L 11/08/19 06:29 Albumin/Globulin Ratio 1.1 % 11/08/19 06:29 Lipase 35 units/L (13-60) 11/07/19 09:02 Urine Color [place] (Yellow) 11/06/19 05:17 Urine Turbidity Clear (Clear) 11/06/19 05:17 Urine pH 6.0 (5.0-7.0) 11/06/19 05:17 Ur Specific [place] 1.033 (1.003-1.030) H 11/06/19 05:17 Urine Protein 30 mg/dl mg/dL (Negative) 11/06/19 05:17 Urine Glucose (UA) Neg mg/dL (Negative) 11/06/19 05:17 Urine Ketones Neg mg/dL (Negative) 11/06/19 05:17 Urine Blood Neg (Negative) 11/06/19 05:17 Urine Nitrite Neg (Negative) 11/06/19 05:17 Urine Bilirubin Sm (Negative) 11/06/19 05:17 Urine Ictotest Positive (Negative) 11/06/19 05:17 Urine Urobilinogen 4.0 mg/dL (<2.0) 11/06/19 05:17 Ur Leukocyte Esterase Neg (Negative) 11/06/19 05:17 Urine WBC (Auto) < 1.0 /HPF (0.0-6.0) 11/06/19 05:17 Urine RBC (Auto) 10.0 /HPF (0.0-6.0) 11/06/19 05:17 U Epithel Cells (Auto) < 1.0 /HPF (0-13.0) 11/06/19 05:17 Urine Bacteria (Auto) 1+ /HPF (Negative) 11/06/19 05:17 Urine Mucus 2+ /HPF 11/06/19 05:17 Hepatitis A IgM Ab Non-reactive (NonReactive) 11/07/19 09:02 Hep Bs Antigen Non-reactive (Negative) 11/07/19 09:02 Hep B Core IgM Ab Non-reactive (NonReactive) 11/07/19 09:02 Hepatitis C Antibody Non-reactive (NonReactive) 11/07/19 09:02 Burnett/IV: Voiding Method Toilet IV Catheter Type [Right Peripheral IV Forearm] IV Catheter Type [Left Distal INT / Saline Lock Port Antecubital] Active Medications - Current Medications Current Medications: Generic Name Dose Route Start Last Admin Trade Name Freq PRN Reason Stop Dose Admin Acetaminophen 650 mg 11/06/19 07:04 Tylenol PO Q4H PRN Pain, Mild (1-3) Hydromorphone HCl 0.5 mg 11/06/19 07:02 Dilaudid IV Q3H PRN Pain , Severe (7-10) Dextrose/Sodium Chloride 1,000 mls @ 125 mls/hr 11/06/19 08:00 11/08/19 05:45 D5/0.45ns IV 125 mls/hr DIRECT YEIMY Administration Lorazepam 2 mg 11/06/19 09:59 Ativan IV Q4H PRN Agitation Morphine Sulfate 2 mg 11/07/19 08:22 Morphine IV Q4H PRN Pain, Moderate (4-6) Ondansetron HCl 4 mg 11/06/19 07:03 Zofran IV Q8H PRN Nausea And Vomiting Pantoprazole Sodium 40 mg 11/07/19 10:00 11/07/19 10:01 Protonix IV 40 mg QDAY YEIMY Administration
[2019-11-08] MEDS: PANTOPRAZOLE 40 MG INJ IV SCH (09:15)
--- NOTE | 2019-11-08 10:20 | Anesthesia Consultation ---
Anesthesia Consult and Med Hx Date of service: 11/08/19 - Airway Anesthetic Teeth Evaluation: Good ROM Head & Neck: Adequate Mental/Hyoid Distance: Adequate Mallampati Class: Class II Intubation Access Assessment: Probably Good - Pre-Operative Health Status ASA Pre-Surgery Classification: ASA2 Proposed Anesthetic Plan: General - Pulmonary Hx Smoking: No Hx Asthma: No Hx Respiratory Symptoms: No SOB: No COPD: No Home Oxygen Therapy: No Hx Pneumonia: No Hx Sleep Apnea: Yes - Cardiovascular System Hx Hypertension: No Hx Coronary Artery Disease: No Hx Heart Attack/AMI: No Hx Angina: No Hx Percutaneous Transluminal Coronary Angioplasty (PTCA): No Hx Cardia Arrhythmia: No Hx Pacemaker: No Hx Internal Defibrillator: No Hx Valvular Heart Disease: No Hx Heart Murmur: No Hx Peripheral Vascular Disease: No - Central Nervous System Hx Neuromuscular Disorder: No Hx Seizures: No CVA: No Hx Back Pain: No Hx Psychiatric Problems: No - Gastrointestinal Hx Ulcer: No Hx Gastroesophageal Reflux Disease: No - Endocrine Hx Renal Disease: No Hx End Stage Renal Disease: No Hx Cirrhosis: No Hx Liver Disease: No Hx Insulin Dependent Diabetes: No Hx Non-Insulin Dependent Diabetes: No Hx Thyroid Disease: No Hx Hypothyroidism: No Hx Hyperthyroidism: No - Hematic Hx Anemia: No Hx Sickle Cell Disease: No - Other Systems Hx Alcohol Use: Yes (occ.) Hx Substance Use: No Hx Cancer: No Hx Obesity: Yes
--- NOTE | 2019-11-08 10:24 | Anesthesia Day of Surgery ---
Anesthesia Day of Surgery - Day of Surgery Patient Examined: Yes Patient H&P Reviewed: Yes Patient is NPO: Yes
--- NOTE | 2019-11-08 11:00 | Magnetic Resonance Report ---
MR abdomen MRCP INDICATION / CLINICAL INFORMATION: Dilated bile duct. Abnormal LFTs.. TECHNIQUE: Multiplanar, multisequence MR images were obtained. COMPARISON: Abdominal ultrasound 11/06/2019 FINDINGS: The gallbladder contains numerous small stones and sludge. No wall thickening or adjacent inflammatio n. The bile duct is dilated measuring 8.5 mm. Multiple small stones/sludge are layering dependently. No impacted stone is identified. The remaining parenchymal organs are unremarkable. Negative for abdominal mass, fluid or inflammation . The pancreatic duct is not dilated. IMPRESSION: 1. Stones/sludge within the gallbladder and common bile duct. 2. Mild dilatation of the common bile duct without visualized impacted stone. Signer Name: Pillo Chapa MD Signed: 11/08/2019 10:56 AM Workstation Name: [id number]
--- NOTE | 2019-11-08 11:00 | Event Note ---
Date: 11/08/19 Patient chart reviewed. LFTs and bilirubin is trending down. MRCP reviewed with Dr. Davis and shows dilatation of the common bile duct to 1 cm, multiple small stones in the distal one third of the common bile duct with a possible distal CBD stricture. Discussed with Dr. Hoffman. COVID test ordered for perop. Pt to be scheduled for ERCP. Pt tentatively added to OR schedule for tomorrow 11/09/19 for cholecystectomy. Consent already on chart.
--- NOTE | 2019-11-08 14:41 | Progress Note ---
Assessment and Plan 1. Abnormal LFTs - MRCP shows stones in CBD. - ERCP tomorrow - preop COVID pending, given aerosolization with upper endoscopic procedures. Subjective Date of service: 11/08/19 Interval history: Pt sleepy, no complaints. No abd pain, N/V, F/C/NS. Objective - Constitutional Vitals: Vital Signs - 12hr 11/08/19 11/08/19 04:35 12:12 Temperature 98.5 F 98.6 F Pulse Rate 79 Respiratory 16 16 Rate Blood Pressure 108/70 116/71 O2 Sat by Pulse 100 Oximetry General appearance: Present: no acute distress - EENT Eyes: PERRL, EOM intact ENT: hearing intact - Gastrointestinal General gastrointestinal: Present: soft, non-tender - Labs CBC & Chem 7: 11/06/19 00:25 11/08/19 06:29 Labs: Abnormal lab results 11/08/19 Range/Units 06:29 BUN 7 L (9-20) mg/dL Glucose 110 H (75-100) mg/dL Calcium 8.3 L (8.4-10.2) mg/dL AST 201 H (5-40) units/L ALT 519 H (7-56) units/L Alkaline Phosphatase 138 H (35-129) units/L Albumin 3.6 L (3.9-5) g/dL Medications & Allergies - Medications Allergies/Adverse Reactions: Allergies No Known Allergies Allergy (Unverified 11/06/19 00:19) Home Medications: Home Medications Medication Instructions Recorded Confirmed Last Taken Type No Known Home Medications [No 11/06/19 11/06/19 Unknown History Reported Home Medications] Active Medications: Generic Name Dose Route Start Last Admin Trade Name Freq PRN Reason Stop Dose Admin Acetaminophen 650 mg 11/06/19 07:04 Tylenol PO Q4H PRN Pain, Mild (1-3) Hydromorphone HCl 0.5 mg 11/06/19 07:02 Dilaudid IV Q3H PRN Pain , Severe (7-10) Dextrose/Sodium Chloride 1,000 mls @ 125 mls/hr 11/06/19 08:00 11/08/19 05:45 D5/0.45ns IV 125 mls/hr DIRECT YEIMY Administration Lorazepam 2 mg 11/06/19 09:59 11/08/19 09:15 Ativan IV 2 mg Q4H PRN Administration Agitation Morphine Sulfate 2 mg 11/07/19 08:22 Morphine IV Q4H PRN Pain, Moderate (4-6) Ondansetron HCl 4 mg 11/06/19 07:03 Zofran IV Q8H PRN Nausea And Vomiting Pantoprazole Sodium 40 mg 11/07/19 10:00 11/08/19 09:15 Protonix IV 40 mg QDAY YEIMY Administration HEART Score - HEART Score Age: < 45 Risk factors: No known risk factors - Critical Actions Critical Actions: 0-3 pts:0.9-1.7%risk of adverse cardiac event.Candidate for discharge
--- NOTE | 2019-11-08 19:01 | Event Note ---
Date: 11/08/19 MRCP report, GI and surgical recommendations noted ERCP tomorrow morning Followed by possible cholecystectomy COVID-19 test is negative
[2019-11-09] MEDS: D5W/0.45% NACL 1,000 ML IV SCH (06:52)
[2019-11-09] MEDS ORDERED: SODIUM CHLORIDE 0.9% 100 ML ONE (08:06)
[2019-11-09] MEDS ORDERED: WATER FOR IRRIG STERILE 1,000 ML BOTTLE ONE (08:09)
[2019-11-09] MEDS ORDERED: WATER FOR IRRIG STERILE 250 ML BOTTLE IR ONE (08:09)
[2019-11-09] MEDS ORDERED: SIMETHICONE 40 MG/0.6 ML ORAL DROP 30ML PO ONE (08:12)
--- NOTE | 2019-11-09 08:42 | Progress Note ---
Assessment and Plan Assessment and plan: Scheduled for ERCP followed by possible cholecystectomy Patient n.p.o. status, no new complaints --Dilated common bile duct; MRCP: dilatation of the common bile duct to 1 cm, multiple small stones in the distal one third of the common bile duct with a possible distal CBD stricture. N.p.o. status, pain medications, IV fluids --Cholelithiasis; s/p MRCP, for ERCP and cholecystectomy today --Transaminitis; trending down supportive care, GI following hepatitis panel negative, follow MRCP today --Hyperbilirubinemia; resolved --Obesity; BMI 35.9 Patient needs weight reduction when medically stable --Abnormal urine analysis; Possible UTI, however patient does not have fever, leukocytosis Or urinary symptoms, will check urine cultures Empiric antibiotics if needed --DVT prophylaxis; SCDs/Lovenox Plan of care reviewed with the patient and his nurse History Interval history: I have seen and examined the patient in his room this morning Patient is n.p.o. status, scheduled for ERCP followed by cholecystectomy No new complaints, slightly anxious Vital signs noted Hospitalist Physical - Constitutional Vitals: Temp Pulse Resp BP Pulse Ox 98.0 F 58 L 18 117/70 98 11/09/19 05:18 11/09/19 07:55 11/09/19 08:36 11/09/19 07:59 11/09/19 05:18 General appearance: Present: no acute distress, well-nourished - EENT Eyes: Present: PERRL, EOM intact - Neck Neck: Present: supple, normal ROM - Respiratory Respiratory effort: normal Respiratory: bilateral: diminished, negative: rales, rhonchi, wheezing - Cardiovascular Rhythm: regular Heart Sounds: Present: S1 & S2 - Extremities Extremities: no ischemia, No edema - Abdominal General gastrointestinal: soft, non-tender, non-distended, normal bowel sounds - Integumentary Integumentary: Present: clear, warm - Psychiatric Psychiatric: appropriate mood/affect, cooperative - Neurologic Neurologic: moves all extremities HEART Score - HEART Score Age: < 45 Risk factors: No known risk factors - Critical Actions Critical Actions: 0-3 pts:0.9-1.7%risk of adverse cardiac event.Candidate for discharge Results - Labs CBC & Chem 7: 11/06/19 00:25 11/08/19 06:29 Labs: Laboratory Last Values WBC 5.9 K/mm3 (4.5-11.0) 11/06/19 00:25 RBC 4.60 M/mm3 (3.65-5.03) 11/06/19 00:25 Hgb 14.4 gm/dl (11.8-15.2) 11/06/19 00:25 Hct 41.8 % (35.5-45.6) 11/06/19 00:25 MCV 91 fl (84-94) 11/06/19 00:25 MCH 31 pg (28-32) 11/06/19 00:25 MCHC 34 % (32-34) 11/06/19 00:25 RDW 14.0 % (13.2-15.2) 11/06/19 00:25 Plt Count 300 K/mm3 (140-440) 11/06/19 00:25 Lymph % (Auto) 30.7 % (13.4-35.0) 11/06/19 00:25 [place] % (Auto) 7.7 % (0.0-7.3) H 11/06/19 00:25 Eos % (Auto) 1.2 % (0.0-4.3) 11/06/19 00:25 Baso % (Auto) 0.5 % (0.0-1.8) 11/06/19 00:25 Lymph # 1.8 K/mm3 (1.2-5.4) 11/06/19 00:25 [place] # 0.5 K/mm3 (0.0-0.8) 11/06/19 00:25 Eos # 0.1 K/mm3 (0.0-0.4) 11/06/19 00:25 Baso # 0.0 K/mm3 (0.0-0.1) 11/06/19 00:25 Seg Neutrophils % 59.9 % (40.0-70.0) 11/06/19 00:25 Seg Neutrophils # 3.5 K/mm3 (1.8-7.7) 11/06/19 00:25 Sodium 139 mmol/L (137-145) 11/08/19 06:29 Potassium 3.8 mmol/L (3.6-5.0) 11/08/19 06:29 Chloride 102.6 mmol/L (98-107) 11/08/19 06:29 Carbon Dioxide 25 mmol/L (22-30) 11/08/19 06:29 Anion Gap 15 mmol/L 11/08/19 06:29 BUN 7 mg/dL (9-20) L 11/08/19 06:29 Creatinine 0.8 mg/dL (0.8-1.3) 11/08/19 06:29 Estimated GFR > 60 ml/min 11/08/19 06:29 BUN/Creatinine Ratio 9 % 11/08/19 06:29 Glucose 110 mg/dL (75-100) H 11/08/19 06:29 Calcium 8.3 mg/dL (8.4-10.2) L 11/08/19 06:29 Magnesium 2.20 mg/dL (1.7-2.3) 11/08/19 06:29 Total Bilirubin 0.70 mg/dL (0.1-1.2) 11/08/19 06:29 AST 201 units/L (5-40) H 11/08/19 06:29 ALT 519 units/L (7-56) H 11/08/19 06:29 Alkaline Phosphatase 138 units/L (35-129) H 11/08/19 06:29 Total Protein 6.8 g/dL (6.3-8.2) 11/08/19 06:29 Albumin 3.6 g/dL (3.9-5) L 11/08/19 06:29 Albumin/Globulin Ratio 1.1 % 11/08/19 06:29 Lipase 35 units/L (13-60) 11/07/19 09:02 Urine Color [place] (Yellow) 11/06/19 05:17 Urine Turbidity Clear (Clear) 11/06/19 05:17 Urine pH 6.0 (5.0-7.0) 11/06/19 05:17 Ur Specific [place] 1.033 (1.003-1.030) H 11/06/19 05:17 Urine Protein 30 mg/dl mg/dL (Negative) 11/06/19 05:17 Urine Glucose (UA) Neg mg/dL (Negative) 11/06/19 05:17 Urine Ketones Neg mg/dL (Negative) 11/06/19 05:17 Urine Blood Neg (Negative) 11/06/19 05:17 Urine Nitrite Neg (Negative) 11/06/19 05:17 Urine Bilirubin Sm (Negative) 11/06/19 05:17 Urine Ictotest Positive (Negative) 11/06/19 05:17 Urine Urobilinogen 4.0 mg/dL (<2.0) 11/06/19 05:17 Ur Leukocyte Esterase Neg (Negative) 11/06/19 05:17 Urine WBC (Auto) < 1.0 /HPF (0.0-6.0) 11/06/19 05:17 Urine RBC (Auto) 10.0 /HPF (0.0-6.0) 11/06/19 05:17 U Epithel Cells (Auto) < 1.0 /HPF (0-13.0) 11/06/19 05:17 Urine Bacteria (Auto) 1+ /HPF (Negative) 11/06/19 05:17 Urine Mucus 2+ /HPF 11/06/19 05:17 Coronavirus (PCR) Negative (Negative) 11/08/19 Unknown Hepatitis A IgM Ab Non-reactive (NonReactive) 11/07/19 09:02 Hep Bs Antigen Non-reactive (Negative) 11/07/19 09:02 Hep B Core IgM Ab Non-reactive (NonReactive) 11/07/19 09:02 Hepatitis C Antibody Non-reactive (NonReactive) 11/07/19 09:02 Microbiology: Microbiology 11/07/19 Unknown Urine,Clean Catch Urine Culture - Final Burnett/IV: Voiding Method Toilet IV Catheter Type [Right Peripheral IV Forearm] IV Catheter Type [Left Distal INT / Saline Lock Port Antecubital] Active Medications - Current Medications Current Medications: Generic Name Dose Route Start Last Admin Trade Name Freq PRN Reason Stop Dose Admin Acetaminophen 650 mg 11/06/19 07:04 Tylenol PO Q4H PRN Pain, Mild (1-3) Hydromorphone HCl 0.5 mg 11/06/19 07:02 Dilaudid IV Q3H PRN Pain , Severe (7-10) Dextrose/Sodium Chloride 1,000 mls @ 125 mls/hr 11/06/19 08:00 11/09/19 06:52 D5/0.45ns IV 125 mls/hr DIRECT YEIMY Administration Lorazepam 2 mg 11/06/19 09:59 11/08/19 09:15 Ativan IV 2 mg Q4H PRN Administration Agitation Morphine Sulfate 2 mg 11/07/19 08:22 Morphine IV Q4H PRN Pain, Moderate (4-6) Ondansetron HCl 4 mg 11/06/19 07:03 Zofran IV Q8H PRN Nausea And Vomiting Pantoprazole Sodium 40 mg 11/07/19 10:00 11/08/19 09:15 Protonix IV 40 mg QDAY YEIMY Administration
[2019-11-09] MEDS ORDERED: SODIUM CHLORIDE 0.9% 1000 ML 1,000 ML ONE (08:56)
[2019-11-09] MEDS ORDERED: GLUCAGON (HUMAN RECOMBINANT) 1 MG/ML INJ ONE (09:23)
--- NOTE | 2019-11-09 09:23 | Anesthesia Consultation ---
Anesthesia Consult and Med Hx Date of service: 11/09/19 - Airway Anesthetic Teeth Evaluation: Good ROM Head & Neck: Adequate Mental/Hyoid Distance: Adequate Mallampati Class: Class II Intubation Access Assessment: Probably Good - Pre-Operative Health Status ASA Pre-Surgery Classification: ASA2 Proposed Anesthetic Plan: MAC - Pulmonary Hx Smoking: Yes (quit 1 yr ago) Hx Asthma: No Hx Respiratory Symptoms: No SOB: No COPD: No Home Oxygen Therapy: No Hx Pneumonia: No Hx Sleep Apnea: Yes - Cardiovascular System Hx Hypertension: No Hx Coronary Artery Disease: No Hx Heart Attack/AMI: No Hx Angina: No Hx Percutaneous Transluminal Coronary Angioplasty (PTCA): No Hx Cardia Arrhythmia: No Hx Pacemaker: No Hx Internal Defibrillator: No Hx Valvular Heart Disease: No Hx Heart Murmur: No Hx Peripheral Vascular Disease: No - Central Nervous System Hx Neuromuscular Disorder: No Hx Seizures: No CVA: No Hx Back Pain: No Hx Psychiatric Problems: No - Gastrointestinal Hx Ulcer: No Hx Gastroesophageal Reflux Disease: No - Endocrine Hx Renal Disease: No Hx End Stage Renal Disease: No Hx Cirrhosis: No Hx Liver Disease: No Hx Insulin Dependent Diabetes: No Hx Non-Insulin Dependent Diabetes: No Hx Thyroid Disease: No Hx Hypothyroidism: No Hx Hyperthyroidism: No - Hematic Hx Anemia: No Hx Sickle Cell Disease: No - Other Systems Hx Alcohol Use: Yes (occ.) Hx Substance Use: No Hx Cancer: No Hx Obesity: Yes
--- NOTE | 2019-11-09 09:24 | Anesthesia Day of Surgery ---
Anesthesia Day of Surgery - Day of Surgery Patient Examined: Yes Patient H&P Reviewed: Yes Patient is NPO: Yes
[2019-11-09] MEDS ORDERED: ePHEDrine SULFATE 50 MG/1 ML INJ ONE (09:55)
[2019-11-09] MEDS ORDERED: MIDAZOLAM 2 MG/2 ML INJ ONE (09:56)
[2019-11-09] MEDS ORDERED: SUCCINYLCHOLINE CHLORIDE 200 MG/10 ML INJ MDV ONE ×2 (09:57→15:18)
[2019-11-09] MEDS ORDERED: propofoL 200 MG/20 ML VIAL IV ONE ×4 (09:57→15:19)
[2019-11-09] MEDS ORDERED: PHENYLEPHRINE/NS 1,000 MCG/10 ML SYRINGE (OR USE) IV ONE ×2 (09:57→15:18)
[2019-11-09] MEDS ORDERED: GLYCOPYRROLATE 0.4 MG/2 ML INJ ONE ×2 (09:57→15:18)
[2019-11-09] MEDS ORDERED: fentaNYL 100 MCG/2 ML INJ ONE (09:57)
[2019-11-09] MEDS ORDERED: KETAMINE/STERILE WATER 50 MG/ML SYRINGE ONE (09:57)
[2019-11-09] MEDS ORDERED: LIDOCAINE MPF (2%) 20 MG/1 ML VIAL 5 ML ONE ×2 (09:58→15:18)
[2019-11-09] MEDS: PANTOPRAZOLE 40 MG INJ IV SCH (10:07)
--- NOTE | 2019-11-09 11:09 | Post Operative Note ---
Pre-op diagnosis: Choledocholithiasis Post-op diagnosis: same Findings: 1. Bulging but o/w normal major papilla. 2. Normal pancreatic duct 3. CBD dilated to 12 mm, with multiple filling defects. 8 mm sphincterotomy done and duct swept repeatedly, to clear, with return of multiple yellow stones and fragments, largest 8 mm. Procedure: ERCP with sphincterotomy and stone removal Anesthesia: MAC Surgeon: RONNIE BANUELOS Estimated blood loss: none Pathology: none Condition: stable Disposition: floor (Monitor for complications. Cholecystectomy timing as per Surgery.)
--- NOTE | 2019-11-09 11:21 | Operative Report ---
PROCEDURE: ERCP with sphincterotomy and stone removal. PREOPERATIVE DIAGNOSIS: Choledocholithiasis. POSTOPERATIVE DIAGNOSIS: Choledocholithiasis. SEDATION: MAC by Anesthesia. HISTORY: The patient is a 29-year-old man with abnormal liver enzymes, who came in with abdominal pain, which has resolved. MRCP shows stones in the common bile duct. DESCRIPTION OF PROCEDURE: Indications, risks, and benefits were explained and consent was obtained. The patient was then placed on abdomen on fluoroscopy table and sedated. [place] Direct Auto video upper endoscope was passed through the mouth and oropharynx into the descending duodenum and scope was then gradually withdrawn with close inspection of mucosa. Major papilla was identified and with significant difficulty, cannulation of both the pancreatic duct and the biliary system was achieved, the latter after doing a precut papillotomy. FINDINGS: 1. Normal but bulging major papilla. 2. Pancreatic duct is normal in course and caliber. 3. Common bile duct is dilated to 12 mm with multiple small filling defects distally. 8 mm sphincterotomy was done and a 12 mm balloon was repeatedly swept with return of multiple yellow stones and fragments, the largest being 8 mm. No further filling defects were identified. The patient tolerated the procedure well without immediate complications. IMPRESSION: 1. Choledocholithiasis -- cleared after sphincterotomy. 2. Normal pancreatogram. RECOMMENDATIONS: 1. Monitor for complications. 2. Cholecystectomy as per Surgery. JOB# [id number] HRC/NTS
[2019-11-09] MEDS ORDERED: ONDANSETRON 4 MG/2 ML INJ ONE ×2 (11:38→15:18)
--- NOTE | 2019-11-09 13:00 | Post Anesthesia Evaluation ---
- Post Anesthesia Evaluation Patient Participated: Yes Airway Patent: Yes Stable Respiratory Function: Yes Nausea/Vomiting: No Temp > 96.8F: Yes Pain Manageable: Yes Adequeate Hydration: Yes Anesthesia Complications: No Other Comments: Patient scheduled for lap vicenta later this afternoon. Anesthesia consent for this procedure obtained 11/08/19.
[2019-11-09] MEDS ORDERED: ROCURONIUM 50 MG/5 ML INJ IV ONE (15:18)
[2019-11-09] MEDS ORDERED: HYDROmorphone 1 MG/1 ML INJ ONE (15:18)
[2019-11-09] MEDS ORDERED: NEOSTIGMINE 10MG/10 ML INJ MDV ONE (15:18)
[2019-11-09] MEDS ORDERED: dexAMETHasone 20 MG/5 ML VIAL ONE (15:18)
[2019-11-09] MEDS ORDERED: LACTATED RINGERS 1,000 ML ONE (15:19)
[2019-11-09] MEDS ORDERED: LIDOCAINE (1%) 10 MG/1 ML VIAL 20 ML MDV ONE (15:22)
[2019-11-09] MEDS ORDERED: BUPIVACAINE-EPINEPHRINE/PF 0.5%-1:200,000 (30 ML) VIAL INFILTRATI ONE (15:22)
--- NOTE | 2019-11-09 15:31 | Fluoroscopy Report ---
INTRAOPERATIVE FLUOROSCOPY: ERCP INDICATION: Choledocholithiasis. TECHNIQUE: Intraoperative spot images were obtained during the procedure. FINDINGS: After injection of contrast, balloon sweep was performed. No complications are seen. See procedure no te for details. Fluoroscopy Time: 1 minute 47 seconds. Fluoroscopy Images: 15. Signer Name: Endy Brown MD Signed: 11/09/2019 3:26 PM Workstation Name: [id number]
[2019-11-09] MEDS ORDERED: SODIUM CHLORIDE 0.9% IRR 1,500 ML BOTTLE IR ONE (16:18)
[2019-11-09] MEDS ORDERED: BUPIVACAINE/PF (0.5%) 5 MG/1 ML 10 ML VIAL INFILTRATI ONE (16:19)
[2019-11-09] MEDS ORDERED: LIDOCAINE (1%) 10 MG/1 ML VIAL 20 ML MDV INFILTRATI ONE (16:19)
[2019-11-09] MEDS ORDERED: ONDANSETRON 4 MG/2 ML INJ IV PRN (16:31)
--- NOTE | 2019-11-09 16:43 | Operative Report ---
Operative Report Operative Report: Date of operation: 11/09/2019 Preoperative diagnosis: Choledocholithiasis postOperative diagnoses: Choledocholithiasis Procedure performed: Laparoscopic cholecystectomy Surgeon: Jocelyne Xiao DO Pyrotechnic Assembler: MD Pee Anesthesia: Gen. endotracheal anesthesia, local Findings: Gallbladder with small stones Specimen: Gallbladder Estimated blood loss: <10cc Complications: None Disposition: Stable to PACU HPI an indication: 29-year-old male who presented to the hospital with complaints of right upper quadrant abdominal pain. He was found to have choledocholithiasis. All imaging and labs were reviewed. The patient underwent ERCP and it was recommended that he undergo cholecystectomy prior to discharge. All risk, benefits, alternatives surgery discussed with the patient questions answered. The patient was then consented for a laparoscopic possible open cholecystectomy. Procedure in detail: The patient was identified in the preoperative area and taken back to the operating room, placed on the operating room table in supine position. After anesthesia was induced, the abdomen was prepped and draped in usual sterile fashion and timeout was performed. Local anesthetic was infiltrated into all of the skin incision sites. Using a 11 blade a supraumbilical incision was made and through this a Veress needle was used to insufflate the abdomen. The position of the veress needle was confirmed with the saline drop test and the abdomen was then insufflated to 15 mmHg. The veress needle was then removed and a 5 mm trocar Optiview trocar was placed through this incision. The abdomen was then inspected and there was no underlying injury to any of the abdominal contents. An additional 12 mm subx yphoid port, and 2, 5mm RUQ ports were then placed under direct visualization. The patient was then placed into reverse Trendelberg and tilted to the left. The gallbladder was visualized and there were some adhesions from the omentum to the gallbladder. Ends were taken down using combination of blunt dissection and electrocautery. The gallbladder was grasped and retracted cephalad and over the liver. The cystic duct and artery were then carefully dissected and the critical view obtained, and the cystic duct and artery were the only two structures seen entering the gallbladder. Three clips were then placed on the proximal aspect of the cystic duct and one clip distally, and 2 clips on the cystic artery proximally and one distal. The cystic duct and cystic artery were then transected in between the clips. The gallbladder was dissected off the liver bed using hook electrocautery. The gallbladder was placed into a Endo Catch bag and removed from the abdomen via the 12mm port. The gallbladder fossa was then inspected and hemostasis was achieved using electrocautery. There was no identifiable bleeding or bile leakage. Hemostasis was ensured. The clips on the cystic duct and artery were visualized and intact. The 12 mm port fascia was closed with interrupted 0 Vicryl sutures using the Bennie Macdonald device. The remaining ports were removed under direct visualization. Skin incisions were closed with 4-0 Monocryl subcuticular stitches and skin glue. All skin incisions were once again infiltrated with local anesthetic. At the end case all sponge, instrument, sharp counts were correct 2. The patient was awoken from anesthesia, extubated, taken to PACU in stable condition.
[2019-11-09] MEDS: HYDROmorphone 1 MG/1 ML INJ IV PRN ×2 (17:15→17:26)
--- NOTE | 2019-11-09 17:53 | Progress Note ---
Hospitalist Physical - Constitutional Vitals: Temp Pulse Resp BP Pulse Ox 98.3 F 87 16 136/66 99 11/09/19 16:41 11/09/19 17:30 11/09/19 17:40 11/09/19 17:30 11/09/19 17:30 General appearance: Present: no acute distress, well-nourished HEART Score - HEART Score Age: < 45 Risk factors: No known risk factors - Critical Actions Critical Actions: 0-3 pts:0.9-1.7%risk of adverse cardiac event.Candidate for discharge Results - Labs CBC & Chem 7: 11/06/19 00:25 11/08/19 06:29 Labs: Laboratory Last Values WBC 5.9 K/mm3 (4.5-11.0) 11/06/19 00:25 RBC 4.60 M/mm3 (3.65-5.03) 11/06/19 00:25 Hgb 14.4 gm/dl (11.8-15.2) 11/06/19 00:25 Hct 41.8 % (35.5-45.6) 11/06/19 00:25 MCV 91 fl (84-94) 11/06/19 00:25 MCH 31 pg (28-32) 11/06/19 00:25 MCHC 34 % (32-34) 11/06/19 00:25 RDW 14.0 % (13.2-15.2) 11/06/19 00:25 Plt Count 300 K/mm3 (140-440) 11/06/19 00:25 Lymph % (Auto) 30.7 % (13.4-35.0) 11/06/19 00:25 [place] % (Auto) 7.7 % (0.0-7.3) H 11/06/19 00:25 Eos % (Auto) 1.2 % (0.0-4.3) 11/06/19 00:25 Baso % (Auto) 0.5 % (0.0-1.8) 11/06/19 00:25 Lymph # 1.8 K/mm3 (1.2-5.4) 11/06/19 00:25 [place] # 0.5 K/mm3 (0.0-0.8) 11/06/19 00:25 Eos # 0.1 K/mm3 (0.0-0.4) 11/06/19 00:25 Baso # 0.0 K/mm3 (0.0-0.1) 11/06/19 00:25 Seg Neutrophils % 59.9 % (40.0-70.0) 11/06/19 00:25 Seg Neutrophils # 3.5 K/mm3 (1.8-7.7) 11/06/19 00:25 Sodium 139 mmol/L (137-145) 11/08/19 06:29 Potassium 3.8 mmol/L (3.6-5.0) 11/08/19 06:29 Chloride 102.6 mmol/L (98-107) 11/08/19 06:29 Carbon Dioxide 25 mmol/L (22-30) 11/08/19 06:29 Anion Gap 15 mmol/L 11/08/19 06:29 BUN 7 mg/dL (9-20) L 11/08/19 06:29 Creatinine 0.8 mg/dL (0.8-1.3) 11/08/19 06:29 Estimated GFR > 60 ml/min 11/08/19 06:29 BUN/Creatinine Ratio 9 % 11/08/19 06:29 Glucose 110 mg/dL (75-100) H 11/08/19 06:29 Calcium 8.3 mg/dL (8.4-10.2) L 11/08/19 06:29 Magnesium 2.20 mg/dL (1.7-2.3) 11/08/19 06:29 Total Bilirubin 0.70 mg/dL (0.1-1.2) 11/08/19 06:29 AST 201 units/L (5-40) H 11/08/19 06:29 ALT 519 units/L (7-56) H 11/08/19 06:29 Alkaline Phosphatase 138 units/L (35-129) H 11/08/19 06:29 Total Protein 6.8 g/dL (6.3-8.2) 11/08/19 06:29 Albumin 3.6 g/dL (3.9-5) L 11/08/19 06:29 Albumin/Globulin Ratio 1.1 % 11/08/19 06:29 Lipase 35 units/L (13-60) 11/07/19 09:02 Urine Color [place] (Yellow) 11/06/19 05:17 Urine Turbidity Clear (Clear) 11/06/19 05:17 Urine pH 6.0 (5.0-7.0) 11/06/19 05:17 Ur Specific [place] 1.033 (1.003-1.030) H 11/06/19 05:17 Urine Protein 30 mg/dl mg/dL (Negative) 11/06/19 05:17 Urine Glucose (UA) Neg mg/dL (Negative) 11/06/19 05:17 Urine Ketones Neg mg/dL (Negative) 11/06/19 05:17 Urine Blood Neg (Negative) 11/06/19 05:17 Urine Nitrite Neg (Negative) 11/06/19 05:17 Urine Bilirubin Sm (Negative) 11/06/19 05:17 Urine Ictotest Positive (Negative) 11/06/19 05:17 Urine Urobilinogen 4.0 mg/dL (<2.0) 11/06/19 05:17 Ur Leukocyte Esterase Neg (Negative) 11/06/19 05:17 Urine WBC (Auto) < 1.0 /HPF (0.0-6.0) 11/06/19 05:17 Urine RBC (Auto) 10.0 /HPF (0.0-6.0) 11/06/19 05:17 U Epithel Cells (Auto) < 1.0 /HPF (0-13.0) 11/06/19 05:17 Urine Bacteria (Auto) 1+ /HPF (Negative) 11/06/19 05:17 Urine Mucus 2+ /HPF 11/06/19 05:17 Coronavirus (PCR) Negative (Negative) 11/08/19 Unknown Hepatitis A IgM Ab Non-reactive (NonReactive) 11/07/19 09:02 Hep Bs Antigen Non-reactive (Negative) 11/07/19 09:02 Hep B Core IgM Ab Non-reactive (NonReactive) 11/07/19 09:02 Hepatitis C Antibody Non-reactive (NonReactive) 11/07/19 09:02 Microbiology: Microbiology 11/07/19 Unknown Urine,Clean Catch Urine Culture - Final Burnett/IV: Voiding Method Toilet IV Catheter Type [Right Peripheral IV Forearm] IV Catheter Type [Left Distal INT / Saline Lock Port Antecubital] Active Medications - Current Medications Current Medications: Generic Name Dose Route Start Last Admin Trade Name Freq PRN Reason Stop Dose Admin Acetaminophen 650 mg 11/06/19 07:04 Tylenol PO Q4H PRN Pain, Mild (1-3) Acetaminophen/Hydrocodone Bitart 1 each 11/09/19 16:44 [place] 5/325 PO Q4H PRN Pain, Moderate (4-6) Hydromorphone HCl 0.5 mg 11/09/19 16:31 11/09/19 17:26 Dilaudid IV 11/09/19 23:59 0.5 mg Q10MIN PRN Administration Pain , Severe (7-10) Dextrose/Sodium Chloride 1,000 mls @ 125 mls/hr 11/06/19 08:00 11/09/19 06:52 D5/0.45ns IV 125 mls/hr DIRECT YEIMY Administration Lorazepam 2 mg 11/06/19 09:59 11/08/19 09:15 Ativan IV 2 mg Q4H PRN Administration Agitation Morphine Sulfate 2 mg 11/07/19 08:22 Morphine IV Q4H PRN Pain , Severe (7-10) Ondansetron HCl 4 mg 11/06/19 07:03 11/09/19 11:40 Zofran IV 4 mg Q8H PRN Administration Nausea And Vomiting Ondansetron HCl 4 mg 11/09/19 16:31 Zofran IV ONCE PRN Nausea And Vomiting Nutrition/Malnutrition Assess - Dietary Evaluation Nutrition/Malnutrition Findings: Nutrition Notes Start: 11/09/19 14:58 Freq: Status: Active Protocol: Document 11/09/19 14:58 LM (Rec: 11/09/19 15:00 LM [email or web address]) Nutrition Notes Need for Assessment generated from: MD Order Initial or Follow up Brief Note Other Pertinent Diagnosis common bile duct dilation, abdominal pain Subjective/Other Information Pt getting procedure. Nutrition Intervention Follow-Up By: 11/11/19 Additional Comments F/U for diet education
--- NOTE | 2019-11-09 19:22 | Event Note ---
Date: 11/09/19 11/09/2019 :ERCP: 1. Bulging but o/w normal major papilla. 2. Normal pancreatic duct 3. CBD dilated to 12 mm, with multiple filling defects. 8 mm sphincterotomy done and duct swept repeatedly, to clear, with return of multiple yellow stones and fragments, largest 8 mm. ERCP with sphincterotomy and stone removal 11/09/2019;s/p lap cholecystectomy
[2019-11-09] MEDS: HYDROcodone/ACETAMINOPHEN 5-325 MG TAB PO PRN (21:35)
[2019-11-10] MEDS: D5W/0.45% NACL 1,000 ML IV SCH ×2 (00:34→10:43)
[2019-11-10] MEDS: HYDROcodone/ACETAMINOPHEN 5-325 MG TAB PO PRN (05:19)
[2019-11-10 07:55] LABS: Alanine Aminotransferase 335 units/L (7-56); Albumin 4.1 g/dL (3.9-5); BUN/Creatinine Ratio 7; Blood Urea Nitrogen 6 mg/dL (9-20); Calcium 9.1 mg/dL (8.4-10.2); Hemolysis Index 2
--- NOTE | 2019-11-10 11:26 | Discharge Summary ---
Providers - Providers Date of Admission: 11/07/19 14:42 Date of discharge: 11/10/19 Attending physician: MARSHALL HEIN 11/06/19 05:06 Consult to Physician [CONS] Stat Comment: Consulting Provider: RONNIE BANUELOS Physician Instructions: Reason For Exam: RUQ pain,elevated LFTs, r/o choledocholithiasis 11/06/19 05:08 Consult to Physician [CONS] Stat Comment: Consulting Provider: CAYLA CHOPRA Physician Instructions: Reason For Exam: RUQ pain,elevated LFTs, r/o choledocholithiasis 11/08/19 14:05 Consult to Dietitian/Nutrition [CONS] Routine Physician Instructions: Reason For Exam: Reason for Consult: Diet education Primary care physician: [facility] Hospitalization Reason for admission: Right upper quadrant pain/nausea vomiting Condition: Stable Pertinent studies: Abdominal ultrasound MRCP Procedures: ERCP with sphincterotomy and stone removal 11/09/2019;s/p lap cholecystectomy Hospital course: 29-year-old male with no past medical history presented to the emergency room with 2 days of worsening right upper quadrant abdominal pain radiating to his back. The pain is dull and started after he ate fast food. He states that since then he has had no appetite. He had one episode of emesis which consisted of digested food. No fevers or chills. He states that he has had this pain in the past with multiple episodes over the last 5 years. He was not aware that he had a gallbladder issue. The pain is now resolved. He is hungry and thirsty. Patient was admitted placed on n.p.o. appropriately managed, evaluated by GI and surgery Subsequently underwent MRCP, ERCP and later lap cholecystectomy. Today patient feels better no new complaints vital signs stable Tolerating regular diet, cleared by GI and surgery for discharge And follow-up as outpatient Patient is stable at discharge Discharge diagnosis: --Dilated common bile duct; MRCP: dilatation of the common bile duct to 1 cm, multiple small stones in ERCP sphincterotomy Lap cholecystectomy --Cholelithiasis; --Transaminitis; trending down --Hyperbilirubinemia; resolved --Obesity; BMI 35.9 Patient needs weight reduction when medically stable Stable at discharge Disposition: - TO HOME OR SELFCARE Time spent for discharge: 32 min Core Measure Documentation - Palliative Care Palliative Care/ Comfort Measures: Not Applicable - Core Measures Any of the following diagnoses?: none Exam - Constitutional Vitals: Temp Pulse Resp BP Pulse Ox 98.5 F 71 20 115/73 97 11/10/19 05:47 11/10/19 05:47 11/10/19 05:47 11/10/19 05:47 11/10/19 05:47 General appearance: Present: no acute distress, well-nourished - EENT Eyes: Present: PERRL, EOM intact - Neck Neck: Present: supple, normal ROM - Respiratory Respiratory effort: normal Respiratory: negative: rales, rhonchi, wheezing - Cardiovascular Rhythm: regular Heart Sounds: Present: S1 & S2 - Extremities Extremities: no ischemia, No edema - Abdominal General gastrointestinal: Present: soft, non-tender, non-distended, normal bowel sounds - Integumentary Integumentary: Present: clear, warm - Musculoskeletal Musculoskeletal: strength equal bilaterally, generalized weakness - Psychiatric Psychiatric: appropriate mood/affect, cooperative - Neurologic Neurologic: moves all extremities Plan Activity: advance as tolerated Diet: regular Additional Instructions: If you have worsening symptoms contact MD or go to emergency room. Follow the postop instructions as explained to you Follow up with: CAYLA CHOPRA DO [Staff Physician] - 14 Days PRIMARY CARE,MD [Primary Care Provider] - 7 Days Prescriptions: Ibuprofen [Motrin 800 MG tab] 800 mg PO Q8HR 5 Days #30 tablet HYDROcodone/APAP 5-325 [[place] 5-325 mg TAB] 1 each PO Q4H PRN #15 tablet PRN Reason: Pain, Moderate (4-6)
[2019-11-10] MEDS ORDERED: KETOROLAC 30 MG/1 ML INJ IV SCH (12:00)
--- NOTE | 2019-11-10 12:28 | Progress Note ---
Assessment and Plan 29-year-old male status post laparoscopic cholecystectomy, postop day 1 Status post ERCP 11/09/2019 Plan: 1. Regular diet 2. DC IV fluids 3. P.o. pain control, will add Toradol IV. Patient instructed to take ibuprofen every 8 along with norco prn at home 4. IS/encouraged deep breathing and splinting of abdomen with pillow 5. OOB/ambulate 6. ok to dc from surgery standpoint. Pt instructed to make appointment to follow up in surgery clinic in 2 weeks D/W Dr. Parra Thank you, please call with questions. Subjective Date of service: 11/10/19 Narrative: Patient seen and examined. Complains of pain in the mid abdomen near his epigastric incision. No fevers or chills. No nausea or vomiting. He is tolerating a diet. Objective Vital Signs - 12hr 11/10/19 05:47 Temperature 98.5 F Pulse Rate 71 Respiratory 20 Rate Blood Pressure 115/73 O2 Sat by Pulse 97 Oximetry - General physical appearance Narrative Exam: Gen.: Awake, alert, oriented 3. Mild distress due to pain ENT: Trachea midline. No lymphadenopathy. No scleral icterus or conjunctival pallor CV: S1, S2 present Respiratory: No audible wheezes Abdomen: Soft, nontender, moderate tenderness to palpation near surgical incisions. The umbilical incision has scant serous drainage. Steri-Strips were applied across the incision, covered with a 2 x 2 gauze and Tegaderm. The remainder of incisions are clean, dry, intact. No rebound, rigidity, guarding Extremities: No clubbing, cyanosis, edema - Labs 11/06/19 00:25 11/10/19 06:12 Diabetes panel 11/10/19 Range/Units 06:12 Sodium 139 (137-145) mmol/L Potassium 4.1 (3.6-5.0) mmol/L Chloride 100.5 (98-107) mmol/L Carbon Dioxide 27 (22-30) mmol/L BUN 6 L (9-20) mg/dL Creatinine 0.9 (0.8-1.3) mg/dL Glucose 118 H (75-100) mg/dL Calcium 9.1 (8.4-10.2) mg/dL AST 87 H (5-40) units/L ALT 335 H (7-56) units/L Alkaline Phosphatase 127 (35-129) units/L Total Protein 7.7 (6.3-8.2) g/dL Albumin 4.1 (3.9-5) g/dL Calcium panel 11/10/19 Range/Units 06:12 Calcium 9.1 (8.4-10.2) mg/dL Albumin 4.1 (3.9-5) g/dL Pituitary panel 11/10/19 Range/Units 06:12 Sodium 139 (137-145) mmol/L Potassium 4.1 (3.6-5.0) mmol/L Chloride 100.5 (98-107) mmol/L Carbon Dioxide 27 (22-30) mmol/L BUN 6 L (9-20) mg/dL Creatinine 0.9 (0.8-1.3) mg/dL Glucose 118 H (75-100) mg/dL Calcium 9.1 (8.4-10.2) mg/dL Adrenal panel 11/10/19 Range/Units 06:12 Sodium 139 (137-145) mmol/L Potassium 4.1 (3.6-5.0) mmol/L Chloride 100.5 (98-107) mmol/L Carbon Dioxide 27 (22-30) mmol/L BUN 6 L (9-20) mg/dL Creatinine 0.9 (0.8-1.3) mg/dL Glucose 118 H (75-100) mg/dL Calcium 9.1 (8.4-10.2) mg/dL Total Bilirubin 0.60 (0.1-1.2) mg/dL AST 87 H (5-40) units/L ALT 335 H (7-56) units/L Alkaline Phosphatase 127 (35-129) units/L Total Protein 7.7 (6.3-8.2) g/dL Albumin 4.1 (3.9-5) g/dL
[2019-11-10 13:10] VITALS: BP 130/85
== END 2019-11-10 15:25 | disposition home or self-care (01) | DRG 419 ==
LOC: ED 23:57 → 3A 11-06 06:58 → OBSVTOIN 11-07 14:42
PROVIDERS: ADMIT Internal Medicine; ATTEND Internal Medicine
PROC: 0FT44ZZ Resection of Gallbladder, Percutaneous Endoscopic Approach (ICD-10-PCS; principal; 2019-11-09)
PROC: 0FC98ZZ Extirpation of Matter from Common Bile Duct, Via Natural or Artificial Opening Endoscopic (ICD-10-PCS; 2019-11-09)
DX: K80.50 Calculus of bile duct without cholangitis or cholecystitis without obstruction (principal); K80.20 Calculus of gallbladder without cholecystitis without obstruction; R74.8 Abnormal levels of other serum enzymes; F10.10 Alcohol abuse, uncomplicated; Y90.9 Presence of alcohol in blood, level not specified; E66.9 Obesity, unspecified; G47.30 Sleep apnea, unspecified; Z20.828 Contact with and (suspected) exposure to other viral communicable diseases; Z68.37 Body mass index [BMI] 37.0-37.9, adult; Z71.3 Dietary counseling and surveillance; Z87.891 Personal history of nicotine dependence
CPT/HCPCS: 36415; 74181; 74330; 76705; 80053; 80074; 81001; 83690; 83735; 85025; 87086; 88304; G0378; C1726; C9113; J0330; J1100; J1170; J1610; J1885; J2060; J2250; J2270; J2370; J2405; J2704; J2710; J3010; J3490; J7030; J7120; Q9967; U0003-CS